=== PATIENT | male | born 1980 | race American Indian/Alaskan Native ===

== ENCOUNTER 2020-11-09 09:56 | Emergency (ER) | payer SELFPAY ==
[2020-11-09 10:04] VITALS: BP 154/98
[2020-11-09] MEDS ORDERED: ACETAMINOPHEN 500 MG TAB PO ONE (10:41)
[2020-11-09] MEDS ORDERED: IBUPROFEN 800 MG TAB PO ONE (10:41)
--- NOTE | 2020-11-09 10:44 | Emergency Department Report ---
ED General Adult HPI - General Chief complaint: Skin/Abscess/Foreign Body Stated complaint: RECTAL PAIN Time Seen by Provider: 11/09/20 10:25 Source: patient, EMS Mode of arrival: Stretcher Limitations: Physical Limitation - History of Present Illness Initial comments: 40-year-old immunocompetent male patient presents to emergency department via EMS with complaints of painful swelling to his rectal area starting yesterday. No preceding trauma. No history of similar symptoms. Denies fever, chills, abdominal pain, nausea, vomiting, diarrhea, constipation, rectal bleeding, melena. Denies all other complaints at this time. - Related Data Previous Rx's Medication Instructions Recorded Last Taken Type Amoxicillin/Potassium Clav 1 each PO BID 5 Days tablet 11/09/20 Unknown Rx [Augmentin 875-125 Tablet] Naproxen 500 mg PO BID #20 tablet 11/09/20 Unknown Rx Psyllium Husk [Metamucil] 30 gm PO DAILY #660 gm 11/09/20 Unknown Rx Allergies Allergy/AdvReac Type Severity Reaction Status Date / Time No Known Allergies Allergy Verified 11/09/20 10:04 ED Review of Systems ROS: Stated complaint: RECTAL PAIN Other details as noted in HPI Other: GENERAL: Negative for fever. CARDIOVASCULAR: Negative for chest pain. PULMONARY: Negative for shortness of breath. GASTROINTESTINAL: Positive for rectal pain. MUSCULOSKELETAL: Negative for back pain. NEUROLOGICAL: Negative for headache. INTEGUMENTARY: Negative for rash. ED Past Medical Hx - Social History Smoking Status: Current Some Day Smoker Substance Use Type: None - Medications Home Medications: Home Medications Medication Instructions Recorded Confirmed Last Taken Type Amoxicillin/Potassium Clav 1 each PO BID 5 Days tablet 11/09/20 Unknown Rx [Augmentin 875-125 Tablet] Naproxen 500 mg PO BID #20 tablet 11/09/20 Unknown Rx Psyllium Husk [Metamucil] 30 gm PO DAILY #660 gm 11/09/20 Unknown Rx ED Physical Exam - General Limitations: Physical Limitation - Other Other exam information: General: Awake, appropriately interactive, no acute distress. Neck: Supple. Full range of motion intact. Cardiovascular: Normal peripheral perfusion. Pulmonary: No respiratory distress. Patient is speaking normally without use of accessory muscles. Skin: Night Monitor (Shante Walters PA-C) present. There is a fluctuant tender mass adjacent to the rectum, approximately 9:00 position. No purulent drainage. No overlying warmth, minimal erythema. Neurological: No facial asymmetry. Speech is clear. Follows commands. Patient is alert and oriented. Musculoskeletal: Moves all four extremities spontaneously with normal range of motion. Psych: Cooperative. Appropriate mood and affect. ED Course Vital Signs 11/09/20 10:02 Temperature 98 F Pulse Rate 60 Respiratory 14 Rate Blood Pressure 154/98 O2 Sat by Pulse 100 Oximetry - I & D Rectum Type of Procedure: Simple Site: perirectal Blade Size: 11 I & D Procedure: betadine prep, sterile drapes applied Progress: Verbal consent was obtained from the patient. The patient was placed in a prone position. The area was prepped and draped. The area was cleansed with Betadine and saline. The area was anesthetized using approximately 3 mL of lidocaine 1% with epinephrine. A #11 blade was used to make a small incision along the medial aspect of the abscess. Approximately 40 cc of purulent, malod orous drainage was expressed from the wound. The wound was explored and irrigated to its base. No remaining loculations. Estimated blood loss of 2 mL. Dressing was applied. Patient tolerated procedure well without complications. Night Monitor (Shante Walters PA-C) present throughout duration of procedure. ED Medical Decision Making - Medical Decision Making Differential diagnosis including but not limited to: abscess, hemorrhoid, pilonidal cyst Patient presents emergency department with signs/symptoms consistent with perirectal abscess. He is immunocompetent, afebrile, hemodynamically stable. Pain is appropriately proportional to exam findings. Patient underwent incision and drainage without complications. See procedure note for details. He reports significant pain relief following the procedure. No clinical indication for further diagnostic work-up or emergent surgical consultation at this time. Patient will be prescribed Augmentin per current UpToDate guidelines as well as stool softeners/appropriate analgesics. Referred to primary care provider for close outpatient follow-up. Emphasized importance of calling today to schedule an appointment for reevaluation in 48 hours. Patient expressed understanding and is agreeable to plan of care. Wound care precautions discussed. Strict return precautions provided. Repeat exam is unremarkable and benign. History, exam, diagnostic testing, and current condition do not suggest worrisome pathology to warrant further testing, continued ED treatment, admission, or surgical evaluation at this point. Given the low probability of a significant medical illness, it would be more likely to result in harm than benefit to perform further testing at this stage. Discussed findings, presumptive diagnosis, need for follow-up and specific signs/symptoms that should prompt immediate return to the emergency department. Instructions were explained in detail to the patient in addition to giving written discharge information. Patient expressed understanding and was given the opportunity to ask questions, all of which were satisfactorily answered prior to discharge home. Critical care attestation.: If time is entered above; I have spent that time in minutes in the direct care of this critically ill patient, excluding procedure time. ED Disposition Clinical Impression: Anorectal abscess Disposition: DC- TO HOME OR SELFCARE Is pt being admited?: No Does the pt Need Aspirin: No Condition: Stable Instructions: Anorectal Abscess Additional Instructions: Take Tylenol every 4 hours as needed for pain. Take Naprosyn twice daily with food as needed for pain. Take Augmentin with food twice daily until complete. Take Metamucil as directed. Increase your dietary intake of probiotic rich foods while taking this medication. Apply warm compresses to the affected area at least 3 times daily. The area may continue to drain on its own. Do not forcefully attempt to express drainage from the wound. Keep wound clean and covered. Change dressing daily. You must follow-up with primary care provider in 48 hours for wound recheck. Call today to schedule an appointment. See referral information below. Return to the emergency department immediately for new or worsening symptoms. Specifically, return to the emergency department immediately for fever, incr eased pain, worsening swelling, difficulty using the bathroom, skin color changes, or any other concerns. Prescriptions: Amoxicillin/Potassium Clav [Augmentin 875-125 Tablet] 1 each PO BID 5 Days tablet Psyllium Husk [Metamucil] 30 gm PO DAILY #660 gm Naproxen 500 mg PO BID #20 tablet Referrals: THAO GILES MD [Staff Physician] - 3-5 Days [facility] [place] [facility] [Outside] - 3-[address] [facility] [Outside] - 3-[address] [facility] [place] [Outside] - 3-5 Days Forms: Work/School Release Form(ED) Time of Disposition: 11:48
[2020-11-09] MEDS ORDERED: LIDOCAINE 1%/EPINEPHRINE 1:100,000 VIAL (20 ML) INFILTRATI NR (10:45)
== END 2020-11-09 12:06 | disposition home or self-care (01) ==
LOC: ED 09:56
DX: K61.2 Anorectal abscess (principal); Z79.899 Other long term (current) drug therapy
CPT/HCPCS: 99283